=== PATIENT | male | born 1960 | race African-American/Black ===

== ENCOUNTER 2017-06-21 07:26 | Day surgery (SDC) | payer OTHER ==
[2017-06-21] MEDS: LR 1,000 ML IV (07:50)
[2017-06-21] MEDS ORDERED: VANCOMYCIN 1000 MG/20 ML VIAL (J3370) As Ordered (08:21)
[2017-06-21] MEDS: GENTAMICIN 100 MG in APPROPRIATE DILUENT 1 EA IV (08:47)
[2017-06-21] MEDS ORDERED: METOCLOPRAMIDE INJ 10MG/2ML VIAL (J2765) As Ordered (08:55)
[2017-06-21] MEDS ORDERED: PROPOFOL 200 MG/20 ML VIAL As Ordered (08:55)
[2017-06-21] MEDS ORDERED: LIDOCAINE 2% INJ 100 MG/5 ML SDV (FOR ANES.) As Ordered (08:55)
[2017-06-21] MEDS ORDERED: MIDAZOLAM INJ 2 MG/2 ML VIAL (J2250) As Ordered (08:55)
[2017-06-21] MEDS ORDERED: fentaNYL 100 MCG/2 ML INJECTION (J3010) As Ordered ×4 (08:55→11:01)
[2017-06-21] MEDS ORDERED: ONDANSETRON 4MG/2ML VIAL (J2405) As Ordered (09:00)
[2017-06-21] MEDS: VANCOMYCIN HCL 1,000 MG, VIAL MATE ADAPTER 1 EACH in D5W 250 ML IV (09:00)
[2017-06-21] MEDS: BACTRIM IV 160MG-800MG/10ML VIAL (S0039) XX (09:12)
[2017-06-21] MEDS: BACITRACIN OINT 30GM As Ordered (10:51)
[2017-06-21] MEDS: fentaNYL 100 MCG/2 ML INJECTION (J3010) IV ×4 (11:09→11:24)
[2017-06-21] MEDS ORDERED: PERCOCET 5MG/325MG TAB As Ordered (11:32)
[2017-06-21] MEDS ORDERED: MORPHINE 10 MG/ML 1ML VIAL (J2270) As Ordered (11:34)
[2017-06-21] MEDS: PERCOCET 5MG/325MG TAB PO ×2 (11:39→13:56)
[2017-06-21] MEDS: MORPHINE 10 MG/ML 1ML VIAL (J2270) IV ×5 (11:42→12:03)
[2017-06-21] MEDS ORDERED: diazePAM 5 MG TAB As Ordered (12:01)
[2017-06-21] MEDS: diazePAM 5 MG TAB PO (12:11)
[2017-06-21] MEDS ORDERED: ONDANSETRON 4MG/2ML VIAL (J2405) IV (13:15)
[2017-06-21] MEDS ORDERED: ACETAMINOPHEN 650MG ER TAB (TYLENOL ARTHRITIS) PO (13:15)
[2017-06-21] MEDS ORDERED: LR 1,000 ML IV (13:15)
[2017-06-21] MEDS ORDERED: KETOROLAC 30 MG/ML VIAL (J1885) IV (14:00)
[2017-06-21] MEDS ORDERED: BACTRIM 160MG/800MG DS TAB PO (21:00)
== END 2017-06-21 15:00 | disposition home or self-care (01) ==
LOC: M SDC 07:26
DX: N52.9 Male erectile dysfunction, unspecified (principal); E78.5 Hyperlipidemia, unspecified; Z85.46 Personal history of malignant neoplasm of prostate; Z79.899 Other long term (current) drug therapy
CPT/HCPCS: 54405

== ENCOUNTER → 2017-08-05 | Outpatient (CLI) | payer OTHER ==
[2017-08-05 17:37] LABS: PROSTATIC SPECIFIC AG MONITOR 0.03 NG/ML (< 4.0)
== END ==
LOC: M SMT 13:10
DX: N52.31 Erectile dysfunction following radical prostatectomy (principal); Z85.46 Personal history of malignant neoplasm of prostate
CPT/HCPCS: 84153

== ENCOUNTER → 2018-03-22 | Outpatient (REF) | payer OTHER, MEDICARE ==
[~2018-03-22] MED LIST: ATOR80TA59 PO; BACT800T5 PO; DIVA500T9 PO; GABA600T4 PO; KEPP500T13 PO; MAGN400T5 PO; OMEP20CA3 PO; TIZA2TA PO; TOPI200T7 PO; TYLE650T35 PO
[2018-03-22 18:45] LABS: BACTERIA, URINE AUTO NEGATIVE (NEGATIVE); MUCUS, URINE SMALL (NEGATIVE); RBC, URINE AUTO 0 /HPF (0-3); SQUAMOUS EPITHELIAL CELL UR AU 0 /HPF (0-6); WBC, URINE AUTO 1 /HPF (0-3)
== END ==
LOC: M SMT 17:21
PROVIDERS: ATTEND Specialist
DX: T83.9XXA Unspecified complication of genitourinary prosthetic device, implant and graft, initial encounter (principal); Y83.1 Surgical operation with implant of artificial internal device as the cause of abnormal reaction of the patient, or of later complication, without mention of misadventure at the time of the procedure; R39.9 Unspecified symptoms and signs involving the genitourinary system
CPT/HCPCS: 81015; 87086; G0463